=== PATIENT | female | born 1960 | race Caucasian/White ===

== ENCOUNTER 2020-08-01 07:58 | Outpatient (REF) | payer OTHER, SELFPAY ==
[2020-08-01 08:24] LABS: COVID-19 Test Negative (Negative)
== END 2020-08-01 07:59 | disposition home or self-care (01) ==
LOC: HO.LAB 07:58
PROVIDERS: Visit Provider Internal Medicine
DX: Z20.828 Contact with and (suspected) exposure to other viral communicable diseases (principal)
CPT/HCPCS: 87635

== ENCOUNTER 2021-01-16 12:16 | Outpatient (REF) | payer OTHER, SELFPAY ==
[2021-01-16 16:06] LABS: COVID-19 Test Negative (Negative)
== END 2021-01-16 12:17 | disposition home or self-care (01) ==
LOC: HO.EMPCOV 12:16
PROVIDERS: Visit Provider Internal Medicine
DX: Z20.822 Contact with and (suspected) exposure to COVID-19 (principal)
CPT/HCPCS: 36415; 87635; C9803

== ENCOUNTER 2021-01-19 07:36 | Outpatient (REF) | payer OTHER, SELFPAY ==
[2021-01-19 08:13] LABS: COVID-19 Test Negative (Negative)
== END 2021-01-19 07:37 | disposition home or self-care (01) ==
LOC: HO.EMPCOV 07:36
PROVIDERS: Visit Provider Internal Medicine
DX: Z20.822 Contact with and (suspected) exposure to COVID-19 (principal)
CPT/HCPCS: 36415; 87635; C9803

== ENCOUNTER 2022-11-07 10:09 | Outpatient (REF) | payer OTHER, SELFPAY ==
[2022-11-07 12:32] LABS: Alanine Aminotransferase 8 U/L (0-31); Anion Gap 12 (12-20); Aspartate Amino Transferase 13 U/L (5-31); Blood Urea Nitrogen 18 mg/dL (9-16); Calcium 9.5 mg/dL (8.4-10.2); Carbon Dioxide 30 mmol/L (22-29); Chloride 105 mmol/L (96-108); Cholesterol 203 mg/dL; Estimated Glomerular Filt Rate > 60; Free T4 (Free Thyroxine) 1.23 ng/dL (0.71-1.85); Glucose Fasting 87 mg/dL (60-99); HDL Cholesterol 45 mg/dL; LDL Cholesterol Calculated 124 mg/dl; Potassium 3.8 mmol/L (3.3-5.1); Sodium 143 mmol/L (135-145); Thyroid Stimulating Hormone < 0.01 uIU/mL (0.32-4.0); Triglycerides 170 mg/dL; Vitamin D 25-OH Total 14.7 ng/mL (>30)
[2022-11-09 01:03] LABS: Varicella IgG Antibody >4000.00 index
== END 2022-11-07 10:10 | disposition home or self-care (01) ==
LOC: HO.HMGCLDS 10:09
PROVIDERS: PCP Internal Medicine; Visit Provider Internal Medicine
DX: Z00.01 Encounter for general adult medical examination with abnormal findings (principal); E03.9 Hypothyroidism, unspecified; F41.8 Other specified anxiety disorders; I10 Essential (primary) hypertension
CPT/HCPCS: 36415; 80048; 80061; 82306; 84439; 84443; 84450; 84460; 86787

== ENCOUNTER 2023-11-12 11:07 | Outpatient (REF) | payer OTHER, SELFPAY ==
[2023-11-12 11:31] LABS: MANUAL DIFF FLAG NO
[2023-11-12 11:54] LABS: Basophils Absolute Auto 0.1 X10*3/uL (0.0-0.2); Eosinophils Absolute Auto 0.2 X10*3/uL (0.0-0.4); Eosinophils Percent Auto 3.6 % (0-4); Hematocrit 42.8 % (37.0-47.0); Imm Gran Abs Auto 0.03 X10*3/uL (0.00-0.03); Imm Gran Pct Auto 0.4 % (0.0-0.4); Lymphocytes Absolute Auto 1.6 X10*3/uL (1.2-4.9); Lymphocytes Percent Auto 23.8 % (20-40); Mean Corpuscular Hemoglobin 31.3 pg (27.0-33.0); Mean Corpuscular Volume 89.2 fL (80.0-98.0); Monocytes Absolute Auto 0.6 X10*3/uL (0.1-1.2); Neutrophils Absolute Auto 4.1 x10*3/uL (2.0-8.3); Neutrophils Percent Auto 62.2 % (45-73); Platelet Count 176 X10*3/uL (160-400); Red Cell Distribution Width 12.5 % (11.0-16.0); White Blood Count 6.7 X10*3/uL (4.8-10.8)
[2023-11-12 12:40] LABS: Alanine Aminotransferase 11 U/L (0-31); Albumin Level 4.4 g/dL (3.5-5.0); Alkaline Phosphatase 106 U/L (39-117); Anion Gap 14 (12-20); Aspartate Amino Transferase 15 U/L (5-31); Bilirubin Total 0.7 mg/dL (0.0-1.0); Blood Urea Nitrogen 26 mg/dL (9-16); Calcium 9.8 mg/dL (8.4-10.2); Carbon Dioxide 28 mmol/L (22-29); Chloride 106 mmol/L (96-108); Cholesterol 242 mg/dL (<200); Estimated Glomerular Filt Rate > 60; Glucose Fasting 95 mg/dL (60-99); HDL Cholesterol 56 mg/dL (>40); LDL Cholesterol Calculated 156 mg/dL (<100); Sodium 144 mmol/L (135-145); Total Protein 7.8 g/dL (6.5-8.0); Triglycerides 150 mg/dL (<150)
[2023-11-12 12:51] LABS: Free T4 (Free Thyroxine) 1.47 ng/dL (0.71-1.85); Thyroid Stimulating Hormone 0.01 uIU/mL (0.32-4.0); Vitamin D 25-OH Total 17.1 ng/mL (>30)
[2023-11-13 19:49] LABS: Thyroid Peroxidase Antibodies 461 IU/mL (<9)
== END 2023-11-12 11:08 | disposition home or self-care (01) ==
LOC: HO.LAB 11:07
PROVIDERS: PCP Internal Medicine; Visit Provider Internal Medicine
DX: I10 Essential (primary) hypertension (principal); E03.9 Hypothyroidism, unspecified; E55.9 Vitamin D deficiency, unspecified; F41.8 Other specified anxiety disorders
CPT/HCPCS: 36415; 80053; 80061; 82306; 84439; 84443; 85025; 86376

== ENCOUNTER 2023-11-15 07:41 | Outpatient (AMB) | payer OTHER, SELFPAY ==
--- NOTE | 2023-11-15 07:49 | A.OFFPC_ITS ---
Vital Signs 11/15/23 07:58 Height 5 ft Weight 155 lb BMI 30.3 BP 140/84 H Blood Pressure Location Rt brachial Position Sitting Pulse 70 Pulse Source Pulse Oximeter Pulse Oximetry (%) 96 Oxygen Delivery Method Room Air Comment Patient has not yet taken her blood pressure medicine today Intake Visit Reasons: PE Intake Note: Pt is here today for her PE: Last papsmear 02/03/19, colonoscopy 04/14/19, mammogram 11/11/18 Allergies No Known Allergies Allergy (Verified 11/15/23 08:12) Medication List - Last Reconciled 11/15/23 by Radha Domingo MD amlodipine 5 mg PO DAILY atenolol 100 mg PO DAILY escitalopram oxalate 20 mg PO DAILY levothyroxine 200 mcg PO QAM lisinopril-hydrochlorothiazide 20-12.5 mg 1 tab PO DAILY lorazepam 1 mg PO DAILY PRN Tobacco use date assessed: 11/15/23 Dental Screening Dental Screen Date: 11/15/23 HPI PE HPI Details Today for physical exam. She is up-to-date with her screening colonoscopy and cervical cancer screening done by Dr. Cárdenas and Dr. Douglas respectively in 2019 both of which showed normal findings. Her last mammogram was in 2019 which showed normal findings,. She has hypertension currently on amlodipine atenolol and lisinopril-HCTZ. Blood pressure slightly elevated on this visit. She sees Dr. Kyleigh Mascorro for her mixed anxiety / depression and is currently on escitalopram and lorazepam as needed Takes levothyroxine for acquired hypothyroidism [facility] Medical History (Updated 11/15/23 @ 08:41 by Radha Domingo MD) Hyperlipidemia Vitamin D deficiency Essential hypertension Mixed anxiety and depressive disorder Acquired hypothyroidism Surgical History History of tubal ligation History of partial hysterectomy History of section Family History Father HTN (hypertension) Substance use disorder Mother Hypothyroidism Arthritis Depression Mental health disorder Brother No problems noted. Brother No problems noted. Brother No problems noted. Sister No problems noted. Daughter No problems noted. Daughter No problems noted. Social History Housing: House Patient Tobacco Use Status: Never used Tobacco e-Cigarette/Vaping Use: Never Used service: No Current occupational status: unemployed Cognitive needs: No Hearing needs: No Vision needs: Yes Questionnaire PHQ-9 Over the last 2 weeks, how often have you been bothered by any of the following problems? 1. Little interest or pleasure in doing things: nearly every day 2. Feeling down, depressed, or hopeless: nearly every day 3. Trouble falling or staying asleep, or sleeping too much: nearly every day 4. Feeling tired or having little energy: nearly every day 5. Poor appetite or overeating: nearly every day 6. Feeling bad about yourself - or that you are a failure or have let yourself or your family down: nearly every day 7. Trouble concentrating on things, such as reading the newspaper or watching television: nearly every day 8. Moving or speaking so slowly that other people could have noticed. Or the opposite - being so fidgety or restless that you have been moving around a lot more than usual: nearly every day 9. Thoughts that you would be better off or of hurting yourself in some way: not at all Total score: 24 Depression Screening Interpretation: Positive Depression Screening Follow-up: Existing condition, In treatment and Community Mental Health Worker F/U (Currently being followed by Dr. Kyleigh Nino) Depression Screening Done: Yes 62526 - PHQ-9 Billing: Yes Source: Developed by Drs. Kenneth Min, aRchelle Chong, Harrison Baires and colleagues, with an educational juan from [employer]. Thrive Questionnaire Date Thrive assessed: 11/07/22 I am a: Patient What is your living situation today?: I have a steady place to live Within the past 12 months, did the food you bought not last and you didn't have the money to get more?: Sometimes True Within the past 12 months, did you worry whether your food would run out before you got money to buy more?: Sometimes True Do you have trouble paying for medicines?: No Do you have trouble getting transportation to medical appointments?: No Do you have trouble paying your heating and electricity bill?: No Do you have trouble taking care of your child, family member or friend?: No Do you have trouble with day-to-day activities such as bathing, preparing meals, shopping, managing finances, etc.?: Yes Are you currently unemployed and looking for a job?: Yes Please select the resources that you would like help with: Food, Transportation and Utilities THRIVE Score: 2 AUDIT C Alcohol Use Questionnaire (AUDIT-C) 1. How often do you have a drink containing alcohol?: 4 or more times a week 2. How many drinks containing alcohol do you have on a typical day when you are drinking?: 3 or 4 Total Score: 5 GRETA-7 AMB Questionnaire GRETA-7 Date GRETA - 7 assessed: 11/15/23 Feeling nervous, anxious, or on edge: 3 = Nearly every day Not being able to stop or control worryin = Nearly every day Worrying too much about different things: 3 = Nearly every day Trouble relaxin = Nearly every day Being so restless that it is hard to sit still: 3 = Nearly every day Becoming easily annoyed or irritable: 3 = Nearly every day Feeling afraid as if something awful might happen: 3 = Nearly every day Total GRETA-7 score (0-4 normal; 5-9 mild; 10-14 moderate; 15-21 severe): 21 Source: Developed by Drs. Kenneth Min, Rachelle Chong, Harrison Baires and colleagues, with an educational juan from [employer]. GRETA-7 Assessment Billing GRETA-7 Assessment Tool: GRETA-7 Assessment 04237 Review of Systems Const Denies no additional complaints, Denies difficulty sleeping, Denies fatigue, Denies frequent falls and Denies headache(s) Eyes Reports blurry vision (overdue for her eye exam , used to see Dr bhakta) ENT Reports no additional complaints and Denies headache(s) Card Reports no additional complaints, Denies chest pain, Denies palpitations and Denies dyspnea Resp Denies cough and Denies dyspnea GI Denies abdominal pain, Denies melena, Denies hematochezia, Denies change in bowel habits, Denies dyspepsia and Denies heartburn Reports no additional complaints Musc Reports no additional complaints Skin/Breast Denies breast skin changes, Denies breast pain, Denies breast mass and Denies rash Neuro Denies frequent falls and Denies headache(s) Psych Reports as per HPI Endo Denies cold intolerance, Denies fatigue, Denies polydipsia, Denies polyuria and Denies palpitations Jose Roberto/Lymph Denies easy bleeding and Denies easy bruising Aller/Immun Reports no additional complaints Physical exam (Primary Care) Vital Signs: Last Vital Signs Pulse 70 11/15/23 07:58 BP 140/84 H 11/15/23 07:58 Pulse Ox 96 11/15/23 07:58 Oxygen Delivery Method Room Air 11/15/23 07:58 BMI result Body Mass Index 30.3 Tobacco/Smoking Status: Tobacco use Status Tobacco use date assessed 11/15/23 11/15/23 07:50 Patient Tobacco Use Status Never used Tobacco 11/15/23 07:50 e-Cigarette/Vaping Use Never Used 11/15/23 07:50 PHQ-9: PHQ-9 Score PHQ-9: Total score 11/15/23 08:39 Depression Screening Interpretation: Positive Depression Screening Follow-up: Existing condition, In treatment and Community Mental Health Worker F/U (Roc byrnes being followed by Dr. Kyleigh Nino) Thrive Assessment: Date of Thrive Assessment Date Thrive assessed 11/07/22 11/15/23 07:50 Const General: cooperative, comfortable, no acute distress, alert and Physically active Nutritional Appearance: overweight Orientation/consciousness: patient oriented x3 HENMT Head: Yes normocephalic and Yes atraumatic Ears: hearing grossly normal bilaterally, external ears normal, TM's normal bilaterally and EAC's normal General nose exam: Normal external nose present and No nasal discharge present Face and sinus: Yes face symmetric Mouth: Normal oral and palatal mucosa present, oropharynx normal and moist mucous membranes Eyes General: appearance normal, both eyes and all related structures Pupils: Equal, round and reactive pupils present EOM: EOMs intact bilaterally Neck Neck: Yes full ROM, Yes no lymphadenopathy and Yes supple Thyroid: Thyroid normal Chest Chest palpation & inspection: normal inspection of the chest and normal palpation of entire chest wall Breast/axilla inspection: normal inspection of the breasts Breast/axilla palpation: normal palpation of the breasts Resp Effort & Inspection: normal respiratory effort and able to speak in complete sentences Auscultation: clear to auscultation bilaterally Cardio Rate: regular rate Rhythm: regular rhythm Heart sounds: S1 normal heart sound present and S2 normal heart sound present Bruits: no abdominal aortic bruits GI Inspection: Yes normal to inspection Palpation (GI): No Abdominal aortic bruit present, Soft to palpation, nontender, no guarding and no masses Auscultation: normal bowel sounds General: Yes no CVA tenderness Back/Spine/Pelvis Back: no CVA tenderness and No back tenderness Skin General skin exam: no rashes or lesions noted Neuro General: patient oriented x3, gait normal, moves all extremities, Normal light touch and pain sensation, no focal motor deficits and CN's II-XI intact bilaterally Cranial nerves: Yes Equal, round and reactive pupils present Cognition (Neuro): normal cognition Extrem General: Yes normal to inspection, Yes full ROM, Yes no joint enlargement, Yes no clubbing, cyanosis or edema, Yes no calf tenderness and Yes normal gait Psych Appearance: grossly normal and well kempt Mental Status: mental status grossly normal Speech and movement: Normal speech and movement present Affect: Sad affect present Attitude: cooperative Thought process: Normal thought process present Thought content: Normal thought content present Office Procedures Flu Questionnaire Does the patient have a severe egg allergy?: No Does the patient have severe life threatening allergies?: No Does the patient have a fever or illness today?: No Has the patient ever had Guillain-Jelm Syndrome?: No Has the patient ever had any past reaction to a flu shot?: No Immunizations flu vacc [id number] 6mos up(PF) 60 mcg(15 mcgx4)/0.5 mL IM syringe Performing Provider: Radha Domingo MD Performing Location: [facility] Administered by: Trevon Venegas CMA on 11/15/23 08:41 Dose Route Admin Location Dispensed Lot Number Expiration Date NDC Physical Therapy Asst 0.5 mL IM Right Deltoid 0.5 mL [id number] 04/05/24 [id number] [employer] VIS Given Date VIS Provided VIS Publication Date 11/15/23 Single Vaccine 21 Eligibility Eligibility Date Funding Source Not [facility] Eligible 11/15/23 Private Results Reviewed Results Reviewed: RUN: 11/15/23816 PAGE 1 [facility] [address] [place] [id number] Printing Engineer: Rick Fine M.D. Specimen Inquiry Name: Audelia Vega I Age/Sex: 62/F : 1960 Unit#: [id number] Attend Dr: Radha Domingo MD Re11/12/23 Status: DEP REF Location: [facility] Disch: SPEC : [id number] REBECCA: 11/12/23 STATUS: COMP REQ : [id number] RECD: 11/12/[address]: Radha Domingo MD COMP: 11/12/23 ENTERED: 11/12/[address] [facility] [address]: ORDERED: CBC Auto Diff Test Result Flag Reference WBC 6.7 4.8-10.8 X10*3/uL RBC 4.80 4.20-5.50 X1 0*6/uL HGB 15.0 12.0-16.0 g/dl HCT 42.8 37.0-47.0 % MCV 89.2 80.0-98.0 fL MCH 31.3 27.0-33.0 pg MCHC 35.0 31.0-35.0 g/dl RDW 12.5 11.0-16.0 % PLT 176 160-400 X10*3/uL MPV 11.0 9.4-12.3 fL Neut Pct Auto 62.2 45-73 % ImGran Pct Auto 0.4 0.0-0.4 % Lymp Pct Auto 23.8 20-40 % [place] Pct Auto 9.0 2-11 % Eos Pct Auto 3.6 0-4 % Baso Pct Auto 1.0 0-2 % NRBC Pct Auto 0.0 0.0-0.2 /100WBC ANC Neut Abs # 4.1 2.0-8.3 x10*3/uL ImGran Abs Auto 0.03 0.00-0.03 X10*3/uL Lymph Abs Auto 1.6 1.2-4.9 X10*3/uL [place] Abs Auto 0.6 0.1-1.2 X10*3/uL Eos Abs Auto 0.2 0.0-0.4 X10*3/uL Baso Abs Auto 0.1 0.0-0.2 X10*3/uL NRBC Abs Auto 0.000 0.0-0.012 X10*3/uL SPEC : [id number] REBECCA: 11/12/23 STATUS: COMP REQ : [id number] RECD: 11/12/[address] [facility] [address]: Radha Domingo MD COMP: 11/12/23 ENTERED: 11/12/[address]: ORDERED: CMP Fast, Lipid Panel, Vitamin D 25-OH, Free T4, TSH Test Result Flag Reference Sodium 144 135-145 mmol/L Potassium 4.0 3.3-5.1 mmol/L CL 106 96-108 mmol/L CO2 28 22-29 mmol/L Gap 14 12-20 BUN 26 H 9-16 mg/dL Creat 0.88 0.5-1.4 mg/dL EGFR > 60 NOTE: For -[place]ong[place] individuals, multiply the result by 1.210. Chronic Kidney Disease: Estimated GFR < 60 mL/min/1.73m2 Severe Kidney Disease: Estimated GFR < 15 mL/min/1.73m2 FBS 95 60-99 mg/dL CA 9.8 8.4-10.2 mg/dL Total Bili 0.7 0.0-1.0 mg/dL AST (GOT) 15 5-31 U/L ALT (GPT) 11 0-31 U/L Protein, Total 7.8 6.5-8.0 g/dL Alb 4.4 3.5-5.0 g/dL Triglyceride 150 H <150 mg/dL Desirable Triglyceride: less than 150 mg/dL Borderline High Triglyceride 150-199 mg/dL High Triglyceride: 200-499 mg/dL Very High Triglyceride: greater than or equal to 5OO mg/dL Cholesterol 242 H <200 mg/dL Desirable Cholesterol: less than 200 mg/dL Borderline High Cholesterol: 200-239 mg/dL High Cholesterol: greater than 239 mg/dL LDL Calculated 156 H <100 mg/dL Desirable LDL: less than 100 mg/dL Near Optimal/Above Optimal LDL: 110-129 mg/dL Borderline High LDL: 130-159 mg/dL High LDL: 160-189 mg/dL Very High LDL: greater than or equal to 190 mg/dL HDL 56 >40 mg/dL Desirable HDL: greater than 40 mg/dL Note: This HDL assay may give artificially low results in patients with liver disease. Alk Phos 106 39-117 U/L Vit D 25-OH Tot 17.1 L >30 ng/mL Health Based Reference Values* < 20 ng/mL Deficient 20-30 ng/mL Insufficient > 30 ng/mL Sufficient *Morris FRANCIS. N Engl J Med. 2007;357:266-280 Care must be taken in interpreting Vitamin D results from different laboratories and methodologies. Published data demonstrated that results from patients undergoing hemodialysis may show a negative bias when tested with various automated 25-OH vitamin D assays when compared to LC-MS/MS. When testing samples from patients whose predominant form of Vitamin D is Vitamin D2, such as patients receiving Vitamin D2 supplementation, results that are subtherapeutic should be confirmed with another method such as LC-MS/MS. Free T4 1.47 0.71-1.85 ng/dL TSH 3rd Gen. 0.01 L 0.32-4.0 uIU/mL TSH 3rd Generation ([facility]) Assessment and Plan Assessment & Plan (1) Annual visit for general adult medical examination with abnormal findings: Code(s): Z00.01 - Encounter for general adult medical examination with abnormal findings Plan: Recent fasting lab results reviewed with patient. Recommended dental visit every 6 months and regular eye exams, overdue. Take adequate calcium in diet and vitamin-D 3 at 2000 IU per cap once a day, in addition to weight-bearing exercises to help maintain good muscle tone referred for a screening mammogram, up-to-date with her cervical cancer screening but done in 2019 now due, referred to [facility] up-to-date with her screening colonoscopy. Did not get her COVID vaccination, refuses, flu vaccine given today (2) Essential hypertension: Code(s): I10 - Essential (primary) hypertension Plan: Blood pressure elevated on this visit, however patient has not yet taken her medicines this morning. Will continue on current treatment, schedule appointment with nurse navigator in 1-2 weeks to check blood pressure peer (3) Mixed anxiety and depressive disorder: Code(s): F41.8 - Other specified anxiety disorders Plan: Currently followed by Dr. Kyleigh Mascorro (4) Acquired hypothyroidism: Code(s): E03.9 - Hypothyroidism, unspecified Plan: Latest thyroid levels are within normal limits, continue with current dose of levothyroxine (5) Vitamin D deficiency: Code(s): E55.9 - Vitamin D deficiency, unspecified Plan: Placed on cholecalciferol 68100 units per capsule to take once a week for the next 3 months. Once finished taking the prescription, to continue taking [id number] vitamin-D 3 at 2000 units daily. Repeat another vitamin-D level in 3 month (6) Encounter for routine pelvic examination: Code(s): Z01.419 - Encounter for gynecological examination (general) (routine) without abnormal findings Qualifiers: Gynecological examination findings: abnormal findings ABSENT Qualified Code(s): Z01.419 - Encounter for gynecological examination (general) (routine) without abnormal findings Plan: Referred to [facility] for her routine Pap and pelvic exam (7) Hyperlipidemia: Code(s): E78.5 - Hyperlipidemia, unspecified Qualifiers: Hyperlipidemia type: pure hypercholesterolemia Qualified Code(s): E78.00 - Pure hypercholesterolemia, unspecified Plan: Reinforced following a low-cholesterol diet and getting regular exercise., advised to avoid alcohol intake recheck again another fasting lipid panel in 3 (8) Alcohol use disorder, mild, abuse: Code(s): F10.10 - Alcohol abuse, uncomplicated Plan: Patient strongly advised to quit alcohol intake declines refer for AA discusse complications of alcohol abuse. Orders: Orders MM tomosynthesis screening BI Today Z12.31 - Encounter for screening mammogram for malignant neoplasm of breast Lipid Panel Today E55.9 - Vitamin D deficiency, unspecified, E78.5 - Hyperlipidemia, unspecified Influenza [id number] Immunization Today Z23 - Encounter for immunization Vitamin D 25-OH Total Today E55.9 - Vitamin D deficiency, unspecified Referrals [facility] Referral Z01.419 - Encounter for gynecological examination (general) (r outine) without abnormal findings Medications: New cholecalciferol (vitamin D3) 1,250 mcg PO QWEEK 3 months 13 caps 0RF Coding Level of Care Code Est Pt Prev Care 40-64y(32422) Diagnoses Annual visit for general adult medical examination with abnormal findings Z00.01 Essential hypertension I10 Mixed anxiety and depressive disorder F41.8 Acquired hypothyroidism E03.9 Vitamin D deficiency E55.9 Encounter for gynecological examination without abnormal finding Z01.419 Gynecological examination findings: abnormal findings ABSENT Pure hypercholesterolemia E78.00 Hyperlipidemia type: pure hypercholesterolemia Alcohol use disorder, mild, abuse F10.10 Additional Codes GRETA-7 Assessment Billing - GRETA-7 Assessment Tool: GRETA-7 Assessment 84255 ([id number])
[2023-11-15 07:58] VITALS: BP 140/84; PULSE 70; O2SAT 96; BMI 30.3
== END 2023-11-15 10:00 | disposition home or self-care (01) ==
PROVIDERS: PCP Internal Medicine; Visit Provider Internal Medicine
DX: Z00.00 Encounter for general adult medical examination without abnormal findings (principal); E03.9 Hypothyroidism, unspecified; F41.8 Other specified anxiety disorders; Z23 Encounter for immunization; I10 Essential (primary) hypertension; E55.9 Vitamin D deficiency, unspecified; E78.00 Pure hypercholesterolemia, unspecified; F10.10 Alcohol abuse, uncomplicated
CPT/HCPCS: 90471; 90686; 99396

== ENCOUNTER 2023-12-14 12:25 | Emergency (ER) | payer OTHER, SELFPAY ==
--- NOTE | ~2023-12-14 | CT_ITS ---
EXAMINATION: CT ABDOMEN AND PELVIS WITH CONTRAST CLINICAL INFORMATION: Abdominal pain. COMPARISON: 03/27/2016 TECHNIQUE: Multidetector volumetric images were obtained from the superior aspect of the liver through the pubic symphysis following administration 85 mL of Omnipaque 350 intravenous contrast. Sagittal and coronal reformatted images were obtained on the technologist's workstation. Oral contrast: No This CT examination was performed using dose optimization techniques as appropriate, variously including the following: *Automated exposure control *Adjustment of mA and/or kV according to patient size (this includes techniques or standardized protocols for targeted exams where dose is matched to indication/reason for exam; i.e. extremities or head) *Use of iterative reconstruction technique DLP: 583. mGy-cm FINDINGS: LUNG BASES: There is a calcified granuloma in the right lower lobe adjacent to the right hemidiaphragm. No suspicious pulmonary nodules. LIVER, GALLBLADDER, AND BILIARY TREE: The liver is normal in size, shape, and attenuation. No focal hepatic lesion or biliary ductal dilatation is present. The gallbladder is unremarkable with no evidence of radiopaque gallstones, gallbladder wall thickening, or obvious pericholecystic inflammatory changes. PANCREAS: Unremarkable. SPLEEN: Unremarkable. ADRENAL GLANDS: Unremarkable. KIDNEYS AND URETERS: The kidneys are normal in size, shape, and attenuation. No hydronephrosis or hydroureter. There is a 4 mm nonobstructing left renal calculus with attenuation value of 950 Hounsfield units situated 10 cm from the left posterior mid axillary line. Additional 2 mm calculi are present in the left upper and left lower renal poles. No appreciable right renal calculi.. No perinephric stranding. BLADDER: Unremarkable. GASTROINTESTINAL TRACT: Small to moderate-sized hiatal hernia. Stomach, small bowel, and colon are normal in caliber. Normal appendix. No appreciable bowel wall thickening or surrounding fat stranding. No intraperitoneal free air or free fluid. ABDOMINAL WALL: Chronic postoperative changes anterior abdominal wall in the pelvis from prior low transverse incision. No hernias. LYMPH NODES: Normal. VASCULAR: Unremarkable. PELVIC VISCERA: The uterus and adnexa are unremarkable. OSSEOUS STRUCTURES: There is mild to moderate multilevel degenerative disc disease in the lumbar spine, most notably at L4-L5 and L5-S1. Marked arthropathy is present at L4-L5 with grade 1 anterolisthesis of L4 on L5. Posterior disc osteophyte complexes at multiple levels produce central canal narrowing, most notably at L2-L3. CT/CT abdomen pelvis w IV con IMPRESSION: 1. No acute intra-abdominal or intrapelvic abnormalities. 2. Nonobstructing left renal calculi. 3. Small to moderate-sized hiatal hernia. 4. Multilevel degenerative spondylosis in the lumbar spine. Fleischner guidelines were followed.
[2023-12-14 12:33] VITALS: BP 140/38; PULSE 66; O2SAT 98
[2023-12-14 12:37] VITALS: BP 162/90; PULSE 85; RESP 20; TEMP 35.5; O2SAT 99; BMI 30.3
--- NOTE | 2023-12-14 12:39 | ECG_ITS ---
Test Reason : ABD PAIN Blood Pressure : / mmHG Vent. Rate : 079 BPM Atrial Rate : 079 BPM P-R Int : 156 ms QRS Dur : 108 ms QT Int : 430 ms P-R-T Axes : 042 -14 -10 degrees QTc Int : 493 ms Normal sinus rhythm Minimal voltage criteria for LVH, may be normal variant ( Lyle product ) Nonspecific ST and T wave abnormality Prolonged QT Abnormal ECG When compared with ECG of 24-NOV-2019 10:49, Non-specific change in ST segment in Lateral leads Inverted T waves have replaced nonspecific T wave abnormality in Inferior leads Nonspecific T wave abnormality now evident in Anterolateral leads QT has lengthened Referred By: Shakira Gómez Electronically Signed By:LOLLY PALMER MD
--- NOTE | 2023-12-14 12:39 | ED.GENADULT ---
HPI - General Adult General Chief complaint: Nausea/Vomiting/Diarrhea Stated complaint: NAUSEA,VOMITING THIS AM PER EMS Time Seen by Provider: 12/14/23 16:01 Source: patient and family (Daughter) Mode of arrival: ambulatory Limitations: no limitations History of Present Illness HPI narrative: 62-year-old female with a history of diabetes mellitus, hypertension, hypothyroidism who presents emergency department for evaluation of nausea, vomiting, diarrhea and abdominal pain since 06:30 hours. She states she has had greater than 10 episodes of emesis throughout the day and now she is vomiting bile. She also states she has been having diarrhea all day. She has not noticed any blood in the vomit or emesis. She states she had subjective fever and chills. She denied rhinorrhea, sore throat, cough, chest pain shortness of breath. She has had frequency and dysuria. Patient states that she is having severe abdominal pain. She states the pain is sharp pain is located diffusely throughout her body. The pain is greater than 10/10. Related Data Home Medications Medication Instructions Recorded Confirmed escitalopram oxalate 20 mg tablet 20 mg PO DAILY 10/03/22 11/07/22 lorazepam 1 mg tablet 1 mg PO DAILY PRN 10/03/22 11/07/22 Previous Rx's Medication Instructions Recorded amlodipine 5 mg tablet 5 mg PO DAILY #90 tabs 11/03/23 lisinopril 20 1 tab PO DAILY #90 tabs 11/03/23 mg-hydrochlorothiazide 12.5 mg tablet atenolol 100 mg tablet 100 mg PO DAILY #90 caps 11/06/23 levothyroxine 200 mcg tablet 200 mcg PO QAM #90 caps 11/06/23 cholecalciferol (vitamin D3) 1,250 1,250 mcg PO QWEEK 3 months #13 11/15/23 mcg (50,000 unit) capsule caps morphine 15 mg immediate release 15 mg PO Q6H PRN pain #10 tabs 12/14/23 tablet ondansetron 4 mg disintegrating 4 mg PO Q6-8H PRN nausea and 12/14/23 tablet vomiting #14 tabs Allergies Allergy/AdvReac Type Severity Reaction Status Date / Time No Known Allergies Allergy Verified 11/15/23 08:12 Review of Systems Review of Systems: Yes all other systems are reviewed and are negative PMFSH Past Medical History [facility] Narrative: Social history: Patient denies tobacco use. She occasionally drinks alcohol. She has had no alcohol to drink recently. She does smoke marijuana twice a day. Medical History (Updated 12/15/23 @ 00:00 by Rach Fry) Hyperlipidemia Vitamin D deficiency Essential hypertension Mixed anxiety and depressive disorder Acquired hypothyroidism Surgical History History of tubal ligation History of partial hysterectomy History of section Family History Family History Father HTN (hypertension) Substance use disorder Mother Hypothyroidism Arthritis Depression Mental health disorder Brother No problems noted. Brother No problems noted. Brother No problems noted. Sister No problems noted. Daughter No problems noted. Daughter No problems noted. Social History Social History Housing: House Patient Tobacco Use Status: Never used Tobacco Smoked in Last 30 Days: No e-Cigarette/Vaping Use: Never Used Use of substances other than those prescribed or required for medical reasons: Yes Substance Use Type: Marijuana Substance Use Frequency: Daily Advance Directives: No Advance Directives Information Provided: No Patient : No service: No Current occupational status: unemployed Cognitive needs: No Hearing needs: No Vision needs: Yes Physical Exam ED Vital Signs: Vital Signs - 24 hr 12/14/23 12:37 12/14/23 14:41 12/14/23 16:00 Temperature 96 F L 98 F 98.9 F Pulse Rate 85 82 92 Respiratory Rate 20 18 16 Blood Pressure 162/90 H 188/104 H 166/87 H Pulse Oximetry 99 100 99 Oxygen Delivery Method Room Air Room Air Room Air 12/14/23 18:00 12/14/23 19:23 Temperature 98.3 F 98.1 F Pulse Rate 87 89 Respiratory Rate 16 14 Blood Pressure 169/94 H 118/62 Pulse Oximetry 97 97 Oxygen Delivery Method Room Air Room Air BMI result Body Mass Index 30.3 Vital signs revealed elevated blood pressure of 162/90 otherwise unremarkable. Exam: General: Awake, alert in no distress Head: Normocephalic, atraumatic EENT: PERRL, Lids normal, sclera normal, conjunctiva normal, nose normal , ears normal, throat without erythema or exudates Neck: Supple, no adenopathy Lung: breath sounds symmetric, no wheezing, rales or rhonchi Chest: symmetric movement, nontender Heart: regular rate and rhythm, normal S1, S2 no murmurs or rubs Abdomen: soft, mild to moderate diffuse tenderness, no rebound, no voluntary or involuntary guarding, nondistended, normal bowel sounds Back: no vertebral tenderness, no CVAT Extremities: no deformities, moves all extremities symmetrically Neuro: Awake, alert, oriented, normal speech, cranial nerves intact, moves all extremities symmetrically Psych: Pleasant, cooperative Course Course Course Narrative: This is a rapid medical exam: Additional HPI, ROS, PE not included below will be deferred to primary provider. Patient is a 62-year-old female presenting to the ED with complaint of nausea, vomiting, and diarrhea since this morning. Sudden onset symptoms. Vitals stable in triage. Generalized abdominal pain. Feels sweaty, lightheaded. Plan: EKG, labs, viral swabs, UA 14:43 Patient reassessed, BP elevated to 188/104, states did not take BP medication today due to vomiting, medicated with IM benadryl d/t QT prolongation. Charge aware. Medications Administered Discontinued Medications Generic Name Dose Route Start Last Admin Trade Name Freq PRN Reason Stop Dose Admin Diphenhydramine HCl 25 mg 12/14/23 14:39 12/14/23 15:37 Diphenhydramine Hcl 50 Mg/Ml Vial IM 12/14/23 14:40 25 mg ONCE ONE Administration Diphenhydramine HCl 25 mg 12/14/23 16:35 12/14/23 16:56 Diphenhydramine Hcl 50 Mg/Ml Vial IVPUSH 12/14/23 16:36 25 mg ONCE ONE Administration Sodium Chloride 1,000 mls @ 999 mls/hr 12/14/23 16:32 12/14/23 17:58 Ns IV 12/14/23 17:32 Infused .Q1H1M STA Infusion Iohexol 85 ml 12/14/23 16:19 12/14/23 16:19 Iohexol 350 Mg/Ml 100 Ml Infus..Btl IV 12/14/23 16:20 85 ml ONCE ONE Administration Ketorolac Tromethamine 30 mg 12/14/23 16:32 12/14/23 16:56 Ketorolac Tromethamine 30 Mg/Ml Vial IVPUSH 12/14/23 16:33 30 mg ONCE ONE Administration Metoclopramide HCl 10 mg 12/14/23 16:35 12/14/23 16:57 Metoclopramide Hcl 10 Mg/2 Ml Vial IVPUSH 12/14/23 16:36 10 mg ONCE STA Administration Morphine Sulfate 4 mg 12/14/23 17:52 12/14/23 18:15 Morphine Sulfate 4 Mg/Ml Cartridge IVPUSH 12/14/23 17:53 4 mg ONCE STA Administration Protocol Medical Decision Making Medical Decision Making MDM Narrative: 62-year-old female with a history of diabetes mellitus, hypertension, hypothyroidism who presents emergency department for evaluation of nausea, multiple episodes of vomiting and diarrhea-with no blood in either the diarrhea or emesis and diffuse abdominal pain with symptoms beginning at 06:30 hours. Patient describes abdominal pain is a severe, sharp pain which is constant is greater than 10/10. Vital signs did reveal an elevated blood pressure. Exam did reveal mild to moderate diffuse abdominal tenderness with no rebound or voluntary guarding. Differential diagnosis: ?Includes but is not limited to appendicitis, pancreatitis, colitis, gastroenteritis, viral syndrome, dehydration, anemia, electrolyte abnormalities Following evaluation was ordered: CBC, CMP, lipase, troponin, EKG, COVID-19, influenza, RSV, CT scan of the abdomen pelvis with IV contrast Course: My interpretation patient's laboratory evaluation is as follows: WBC elevated 14,000, BUN elevated 28 with a normal creatinine of 0.93, glucose elevated 191. Elevated anion gap of 21. Urinalysis revealed a high specific gravity, positive for glucose positive for blood negative for nitrates and leukocyte esterase. Microscopic revealed 3-5 WBCs 0-5 RBCs, 0-2 squamous cells no bacteria-no evidence for urinary tract infection but evidence for dehydration. Troponin was below detectable limits. CT scan of the abdomen pelvis with IV contrast did not reveal any clear etiology for her pain or other symptoms. Twelve EKG was unremarkable. Patient initially received normal saline IV x1 L, Reglan 10 mg IV and Benadryl 25 mg IV and Benadryl 25 mg IM with only minimal relief of her pain but did resolve her nausea. She then received morphine 4 mg IV with significant relief of her pain and repeat abdominal exam revealed no abdominal tenderness. Patient's symptoms are most likely secondary to a viral syndrome causing her nausea vomiting abdominal pain I did discuss this with her. She was advised to take Tylenol for pain and for pain not relieved by Tylenol she was prescribed morphine 15 mg every 6 hours as needed for pain. She was also given prescription for Zofran 4 mg ODT every 6-8 hours. She was given printed and verbal instructions and discharged home. Admission/Observation Consideration of admission/observation: Escalation of care including admission/observation considered Lab Data MDM Lab Attestation statement: I reviewed the patient's lab results. 12/14/23 13:00 12/14/23 13:00 Labs: Lab Results 12/14/23 12/14/23 Range/Units 13:00 19:51 WBC 14.0 H (4.8-10.8) X10*3/uL RBC 5.34 (4.20-5.50) X10*6/uL Hgb 16.4 H (12.0-16.0) g/dl Hct 45.9 (37.0-47.0) % MCV 86.0 (80.0-98.0) fL MCH 30.7 (27.0-33.0) pg MCHC 35.7 H (31.0-35.0) g/dl RDW 12.0 (11.0-16.0) % Plt Count 208 (160-400) X10*3/uL MPV 10.6 (9.4-12.3) fL Immature Gran % (Auto) 0.6 H (0.0-0.4) % Neut % (Auto) 88.7 H (45-73) % Lymph % (Auto) 4.1 L (20-40) % [place] % (Auto) 4.6 (2-11) % Eos % (Auto) 1.6 (0-4) % Baso % (Auto) 0.4 (0-2) % Lymph # (Auto) 0.6 L (1.2-4.9) X10*3/uL [place] # (Auto) 0.7 (0.1-1.2) X10*3/uL Eos # (Auto) 0.2 (0.0-0.4) X10*3/uL Baso # (Auto) 0.1 (0.0-0.2) X10*3/uL Abs Immat Gran (auto) 0.08 H (0.00-0.03) X10*3/uL Absolute Neuts (auto) 12.4 H (2.0-8.3) x10*3/uL Absolute Nucleated RBC 0.000 (0.0-0.012) X10*3/uL Nucleated RBC % (auto) 0.0 (0.0-0.2) /100WBC Sodium 141 (135-145) mmol/L Potassium 3.3 (3.3-5.1) mmol/L Chloride 106 (96-108) mmol/L Carbon Dioxide 17 L (22-29) mmol/L Anion Gap 21 H (12-20) BUN 28 H (9-16) mg/dL Creatinine 0.93 (0.5-1.4) mg/dL Estim Creat Clear Calc 55.5 Estimated GFR > 60 Random Glucose 191 H (60-115) mg/dL Calcium 10.5 H D (8.4-10.2) mg/dL Magnesium 1.6 (1.6-2.6) mg/dL Total Bilirubin 1.0 (0.0-1.0) mg/dL AST 24 (5-31) U/L ALT 23 (0-31) U/L Alkaline Phosphatase 112 (39-117) U/L Troponin I High Sens < 2.7 (<3.5-17.0) ng/L Total Protein 8.4 H (6.5-8.0) g/dL Albumin 4.6 (3.5-5.0) g/dL Urine Color Yellow Urine Appearance Clear Urine pH 6.5 (5.0-9.0) Ur Specific [place] >= 1.030 H (1.005-1.025) Urine Protein Trace (Neg-Trace) mg/dL Urine Glucose (UA) 100 H (Negative) mg/dL Urine Ketones Negative (Negative) mg/dL Urine Blood Small (1+) H (Negative) Urine Nitrite Negative (Negative) Ur Leukocyte Esterase Negative (Negative) Urine RBC 3-5 H (0-2) /HPF Urine WBC 0-5 (0-5) /HPF Ur Squamous Epith Cells 0-2 (0-2) /HPF Urine Bacteria None Seen (None Seen) Hyaline Casts 0-2 (0-2) /LPF Influenza Type A (PCR) NEGATIVE (Negative) Influenza Type B (PCR) NEGATIVE (Negative) RSV RNA Qual (PCR) NEGATIVE (Negative) SARS-CoV-2 RNA (RT-PCR) NEGATIVE (Negative) Independent Interpretation I performed an independent interpretation of an: EKG Interpretation: My interpretation patient's 12 EKG done at 12:53 hours is as follows: Normal sinus rhythm rate of 79, normal NC interval, prolonged QRS duration of 108 milliseconds, prolonged QTC of 493 milliseconds, no ST segment elevation, no ST segment depression, no significant T-wave abnormalities, no PACs, no PVCs Radiology Impression Discussion of test interpretation with radiology: I have reviewed the radiologist's reading. Radiologist Impression: CT abdomen pelvis w IV con IMPRESSION: 1. No acute intra-abdominal or intrapelvic abnormalities. 2. Nonobstructing left renal calculi. 3. Small to moderate-sized hiatal hernia. 4. Multilevel degenerative spondylosis in the lumbar spine. Fleischner guidelines were followed. Dictated By: n Independent Historian Clinical information obtained from an independent historian. History obtained from or confirmed by: Other (Family member) Prescription Management I considered prescription management with: Pain Medication and Other (Antiemetics) Chronic Conditions Patient?s care impacted by: Diabetes and Hypertension Discharge Plan Discharge Clinical Impression: Viral syndrome, Nausea & vomiting, Diarrhea Patient Disposition: Home, Self-Care Instructions: Viral Syndrome (ED) Additional Instructions: Your blood work did reveal an elevated white blood cell count which goes along with an infection. Your blood chemistries were otherwise unremarkable Your COVID-19, influenza and RSV were negative. Your symptoms are caused by a viral infection.Take ibuprofen 200 mg pills, 3 pills every 6 hours as needed for pain. Take Tylenol (acetaminophen) 2 pills every 6 hours as needed for pain. For pain not relieved by Tylenol take morphine 15 mg pills, 1 pill every 4 hours as needed for pain. This medication will make you sleepy, do not drive or work while taking this medication. Morphine is a narcotic medication and can be addicting. If you are concerned about addiction you can ask the pharmacist for less pills or do not get this prescription filled. Take Zofran ODT 4 mg pills, 1 pill dissolved in your mouth every 8 hours as needed for nausea and vomiting. For the next 24 hours, stay on a LENNY diet (bananas, rice, applesauce, tea and toast). Follow-up with your doctor in 2 days. Please return to the emergency department if your symptoms get worse or if you develop any symptoms that are concerning to you. Prescriptions: New morphine 15 mg tablet 15 mg PO Q6H PRN (Reason: pain) Qty: 10 0RF Rx Instructions: The patient may ask for partial fill; Partial Fill upon patient request. ondansetron 4 mg tablet,disintegrating 4 mg PO Q6-8H PRN (Reason: nausea and vomiting) Qty: 14 0RF No Action amlodipine 5 mg tablet 5 mg PO DAILY Qty: 90 1RF lisinopril-hydrochlorothiazide 20-12.5 mg tablet 1 tab PO DAILY Qty: 90 1RF atenolol 100 mg tablet 100 mg PO DAILY Qty: 90 1RF levothyroxine 200 mcg tablet 200 mcg PO QAM Qty: 90 1RF lorazepam 1 mg tablet 1 mg PO DAILY PRN escitalopram oxalate 20 mg tablet 20 mg PO DAILY cholecalciferol (vitamin D3) 1,250 mcg (50,000 unit) capsule 1,250 mcg PO QWEEK 90 Days Qty: 13 0RF Interventions: ED Discharge Assessment Last Done: 12/14/23 20:42 Discharge Date/Time: 12/14/23 20:44
[2023-12-14 13:06] LABS: MANUAL DIFF FLAG NO
[2023-12-14 13:07] LABS: Basophils Absolute Auto 0.1 X10*3/uL (0.0-0.2); Basophils Percent Auto 0.4 % (0-2); Eosinophils Absolute Auto 0.2 X10*3/uL (0.0-0.4); Eosinophils Percent Auto 1.6 % (0-4); Hematocrit 45.9 % (37.0-47.0); Hemoglobin 16.4 g/dl (12.0-16.0); Imm Gran Abs Auto 0.08 X10*3/uL (0.00-0.03); Imm Gran Pct Auto 0.6 % (0.0-0.4); Lymphocytes Absolute Auto 0.6 X10*3/uL (1.2-4.9); Lymphocytes Percent Auto 4.1 % (20-40); Mean Corpuscular HGB Conc 35.7 g/dl (31.0-35.0); Mean Corpuscular Hemoglobin 30.7 pg (27.0-33.0); Mean Platelet Volume 10.6 fL (9.4-12.3); Monocytes Absolute Auto 0.7 X10*3/uL (0.1-1.2); Monocytes Percent Auto 4.6 % (2-11); Neutrophils Absolute Auto 12.4 x10*3/uL (2.0-8.3); Neutrophils Percent Auto 88.7 % (45-73); Platelet Count 208 X10*3/uL (160-400); Red Blood Count 5.34 X10*6/uL (4.20-5.50)
[2023-12-14 13:33] LABS: Alanine Aminotransferase 23 U/L (0-31); Albumin Level 4.6 g/dL (3.5-5.0); Alkaline Phosphatase 112 U/L (39-117); Anion Gap 21 (12-20); Aspartate Amino Transferase 24 U/L (5-31); Blood Urea Nitrogen 28 mg/dL (9-16); Calcium 10.5 mg/dL (8.4-10.2); Carbon Dioxide 17 mmol/L (22-29); Chloride 106 mmol/L (96-108); Creatinine Clr Calc Pharmacy 55.5; Estimated Glomerular Filt Rate > 60; Glucose Random 191 mg/dL (60-115); Magnesium 1.6 mg/dL (1.6-2.6); Potassium 3.3 mmol/L (3.3-5.1); Sodium 141 mmol/L (135-145); Total Protein 8.4 g/dL (6.5-8.0)
[2023-12-14 13:39] LABS: Troponin-I High Sensitivity < 2.7 ng/L (<3.5-17.0)
[2023-12-14 13:49] LABS: Influenza A PCR NEGATIVE (Negative); Influenza B PCR NEGATIVE (Negative); Resp Syncy Virus RNA Qual PCR NEGATIVE (Negative); SARS COV2 PCR INHOUSE NEGATIVE (Negative)
[2023-12-14 14:41] VITALS: BP 188/104; PULSE 82; RESP 18; TEMP 36.6; O2SAT 100
[2023-12-14] MEDS: diphenhydrAMINE HCL 50 MG/ML VIAL 25 MG IM (15:37)
--- NOTE | 2023-12-14 15:48 | PC.NURSE ---
patient a&ox3, pt c/o 07/16 abd pain and nausea, pt medicated per order, ekg performed in triage, labs drawn in triage, iv inserted- pt awaiting ct scan, call saavedra within reach, will continue to monitor
[2023-12-14 16:00] VITALS: BP 166/87; PULSE 92; RESP 16; TEMP 37.2; O2SAT 99
[2023-12-14] MEDS: iohexoL 350 MG/ML 100 ML INFUS..BTL 85 ML IV (16:19)
[2023-12-14] MEDS: diphenhydrAMINE HCL 50 MG/ML VIAL 25 MG IVPUSH (16:56)
[2023-12-14] MEDS: Ketorolac Tromethamine 30 MG/ML VIAL IVPUSH (16:56)
[2023-12-14] MEDS: Metoclopramide HCl 10 MG/2 ML VIAL IVPUSH (16:57)
[2023-12-14] MEDS: 0.9 % Sodium Chloride 1,000 ML 999 ML IV (16:57)
--- NOTE | 2023-12-14 17:27 | PC.NURSE ---
patient a&ox3, vss, ivf started per order, pt medicated for pain and nausea, family at bedside, c/o 07/16 abd pain- pt awaiting ct scan results, call saavedra within reach, will continue to monitor
[2023-12-14 18:00] VITALS: BP 169/94; PULSE 87; RESP 16; TEMP 36.8; O2SAT 97
[2023-12-14] MEDS: Morphine Sulfate 4 MG/ML CARTRIDGE IVPUSH (18:15)
--- NOTE | 2023-12-14 18:19 | PC.NURSE ---
patient medicated for 7/10 abd pain
[2023-12-14 19:23] VITALS: BP 118/62; PULSE 89; RESP 14; TEMP 36.7; O2SAT 97
[2023-12-14 20:03] LABS: Appearance Urine Clear; Color Urine Yellow; Glucose Urine UA 100 mg/dL (Negative); Leukocyte Esterase Urine Negative (Negative); Nitrite Urine Negative (Negative); PH 6.5 (5.0-9.0); Specific Gravity - Urine >= 1.030 (1.005-1.025); UMIC TRIGGER UACC YES; Urine Blood Small (1+) (Negative); Urine Ketones Negative (Negative); Urine Protein Trace mg/dL (Neg-Trace)
[2023-12-14 20:14] LABS: Bacteria Urine None Seen (None Seen); Hyaline Casts Urine 0-2 /LPF (0-2); Squamous Epithelial Cell Urine 0-2 /HPF (0-2); WBC Urine 0-5 /HPF (0-5)
== END 2023-12-14 20:44 | disposition home or self-care (01) ==
PROVIDERS: Registered Nurse Emergency; Emergency Provider Emergency Medicine Emergency Medical Services; PCP Internal Medicine
DX: B34.9 Viral infection, unspecified (principal); R11.2 Nausea with vomiting, unspecified; R19.7 Diarrhea, unspecified; R10.9 Unspecified abdominal pain; I10 Essential (primary) hypertension; E03.9 Hypothyroidism, unspecified; E11.9 Type 2 diabetes mellitus without complications; Z11.52 Encounter for screening for COVID-19; Z20.828 Contact with and (suspected) exposure to other viral communicable diseases
CPT/HCPCS: 0241U; 74177; 80053; 81001; 81003; 83735; 84484; 85025; 93005; 96361; 96372; 96374; 96375; 99285; J1200; J1885; J2270; J2765; Q9967

== ENCOUNTER → 2023-12-14 12:39 | Outpatient (BNV) | payer OTHER, SELFPAY | PROVIDERS: Emergency Provider Emergency Medicine Emergency Medical Services; PCP Internal Medicine; Visit Provider Internal Medicine Cardiovascular Disease | DX: R10.9 Unspecified abdominal pain (principal) | CPT/HCPCS: 93010 ==

== ENCOUNTER 2024-01-02 14:38 | Outpatient (REF) | payer OTHER, SELFPAY ==
--- NOTE | ~2024-01-02 | MM_ITS ---
EXAMINATION: MM SCREENING DIGITAL BREAST TOMOSYNTHESIS, BILATERAL CLINICAL INFORMATION: Screening. Asymptomatic. COMPARISON: Mammography: This study is compared with prior exams dating back to 2016. TECHNIQUE: Digital breast tomosynthesis is performed in both the craniocaudal and mediolateral oblique views along with computer-aided detection (CAD). Synthesized 2D images are generated from the tomosynthesis. FINDINGS: There are scattered areas of fibroglandular density (ACR BI-RADS breast composition Category b). There are no significant masses, abnormal calcifications, or other abnormalities. MM/MM tomosynthesis screening BI IMPRESSION: No mammographic evidence of malignancy. ASSESSMENT: BI-RADS BI-RADS 1 - Negative RECOMMENDATION: Routine annual mammography screening. 1 year F/U This examination should not preclude the clinical evaluation of a suspicious palpable abnormality. This patient's information was entered into a reminder system with a target due date for their next mammogram.
== END 2024-01-02 14:39 | disposition home or self-care (01) ==
LOC: HO.MAMMO 14:38
PROVIDERS: PCP Internal Medicine; Visit Provider Internal Medicine
DX: Z12.31 Encounter for screening mammogram for malignant neoplasm of breast (principal)
CPT/HCPCS: 77063; 77067

== ENCOUNTER → 2024-01-02 14:45 | Outpatient (BNV) | payer OTHER, SELFPAY | PROVIDERS: PCP Internal Medicine; Visit Provider Radiology Diagnostic Radiology | DX: Z12.31 Encounter for screening mammogram for malignant neoplasm of breast (principal) | CPT/HCPCS: 77063; 77067 ==

== ENCOUNTER 2024-01-23 12:46 | Outpatient (AMB) | payer OTHER, SELFPAY ==
--- NOTE | 2024-01-23 13:04 | MHC.OFFVIS ---
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 No complaints. Last Pap/HPV was negative in 01/23 Last Mammogram was BI-RADS 1 in 12/28 Last Colonoscopy was in 2018, the recommendation was to repeat in 10 years [facility] Medical History Hyperlipidemia Vitamin D deficiency Essential hypertension Mixed anxiety and depressive disorder Acquired hypothyroidism Surgical History History of tubal ligation History of partial hysterectomy History of section Family History Father HTN (hypertension) Substance use disorder Mother Hypothyroidism Arthritis Depression Mental health disorder Brother No problems noted. Brother No problems noted. Brother No problems noted. Sister No problems noted. Daughter No problems noted. Daughter No problems noted. Social History Housing: House Patient Tobacco Use Status: Never used Tobacco e-Cigarette/Vaping Use: Never Used Substance Use Type: Marijuana service: No Current occupational status: unemployed Cognitive needs: No Hearing needs: No Vision needs: Yes Female Reproductive History Menstrual Menopause type: surgical Total pregnancies: 2 Full term: 2 Number of Living Children: 2 Date of last pap smear: 01/23/19 Date of Mammogram: 01/02/24 Review of Systems Const All systems reviewed & are unremarkable except as noted in HPI and below Card Reports as per HPI and Reports no additional complaints Resp Reports as per HPI and Reports no additional complaints GI Reports as per HPI and Reports no additional complaints Reports as per HPI Physical Exam Vital Signs: Last Vital Signs BP 120/78 01/23/24 13:11 BMI result Body Mass Index 30.9 Const General: cooperative, healthy appearing and comfortable General: Yes bladder normal to palpation External Female Exam: No lesion Speculum Exam - Vagina: normal appearance of the vagina, normal vaginal discharge and not erythematous Speculum Exam - Cervix: normal appearance of the cervix Bimanual exam- vagina & uterus: bladder normal to palpation and uterus absent Bimanual Exam- Adnexa, other: Other (No masses detected) Assessment & Plan Assessment & Plan (1) Well woman exam: Code(s): Z01.419 - Encounter for gynecological examination (general) (routine) without abnormal findings Category: Medical Plan: Cotesting done. Instructions given to patient to schedule next screening Mammogram in 12/29. Counseled the patient about the recommended dietary allowance of 1000 mg of Calcium & 600 IU of vitamin D. The patient was instructed to perform monthly self-breast exams and to schedule an annual exam in a year; All questions answered and the patient verbalized understanding. Instructed the patient to schedule annual exam in a year
[2024-01-23 13:11] VITALS: BP 120/78; BMI 30.9
== END 2024-01-23 12:53 | disposition home or self-care (01) ==
PROVIDERS: PCP Internal Medicine; Visit Provider Obstetrics & Gynecology
DX: Z01.419 Encounter for gynecological examination (general) (routine) without abnormal findings (principal)
CPT/HCPCS: 99386

== ENCOUNTER 2024-01-23 12:46 | Outpatient (REF) | payer OTHER, SELFPAY ==
[2024-01-30 02:39] LABS: HPV mRNA E6/E7 rflx Not Detected (Not Detected)
== END 2024-01-23 12:47 | disposition home or self-care (01) ==
LOC: HO.LNP 12:46
PROVIDERS: PCP Internal Medicine; Visit Provider Obstetrics & Gynecology
DX: Z01.419 Encounter for gynecological examination (general) (routine) without abnormal findings (principal)
CPT/HCPCS: 87624; 88142; 99386

== ENCOUNTER 2024-02-14 11:11 | Outpatient (AMB) | payer OTHER, SELFPAY ==
--- NOTE | 2024-02-14 11:18 | A.OFFPC_ITS ---
Vital Signs 02/14/24 11:20 Height 5 ft Weight 161 lb BMI 31.4 BP 125/80 Blood Pressure Location Lt brachial Position Sitting Pulse 66 Pulse Source Pulse Oximeter Pulse Oximetry (%) 99 Oxygen Delivery Method Room Air Intake Visit Reasons: 3 month follow up Intake Note: Pt is here today for her 3 months f/u Allergies No Known Allergies Allergy (Verified 02/14/24 11:37) Medication List - Last Reconciled 02/14/24 by Radha Domingo MD amlodipine 5 mg PO DAILY atenolol 100 mg PO DAILY cholecalciferol (vitamin D3) 1,250 mcg PO QWEEK 3 months escitalopram oxalate 20 mg PO DAILY levothyroxine 200 mcg PO QAM lisinopril-hydrochlorothiazide 20-12.5 mg 1 tab PO DAILY lorazepam 1 mg PO DAILY PRN Tobacco use date assessed: 02/14/24 Dental Screening Dental Screen Date: 02/14/24 Did you have a dental visit in the last 12 months?: No Was dental information given to patient?: Patient has dentist HPI 3 month follow up HPI Details 63-year-old lady with hypertension, hype rlipidemia, hypothyroidism, and mixed anxiety depressive disorder, here today for her follow-up. Has been taking her medications as directed, tries to follow recommended diet but has not been getting any exercise lately.. Blood pressure noted to be elevated on this visit. Denies any chest pain, no headache, no lightheadedness or shortness of breath It was also noted on last labs that her serum calcium level and random glucose levels were elevated. [facility] Medical History (Updated 02/14/24 @ 11:38 by Radha Domingo MD) Hypercalcemia Hyperlipidemia Vitamin D deficiency Essential hypertension Mixed anxiety and depressive disorder Acquired hypothyroidism Surgical History History of tubal ligation History of partial hysterectomy History of section Family History Father HTN (hypertension) Substance use disorder Mother Hypothyroidism Arthritis Depression Mental health disorder Brother No problems noted. Brother No problems noted. Brother No problems noted. Sister No problems noted. Daughter No problems noted. Daughter No problems noted. Social History Housing: House Patient Tobacco Use Status: Never used Tobacco e-Cigarette/Vaping Use: Never Used Substance Use Type: Marijuana service: No Current occupational status: unemployed Cognitive needs: No Hearing needs: No Vision needs: Yes Questionnaire Thrive Questionnaire Date Thrive assessed: 02/14/24 I am a: Patient What is your living situation today?: I have a steady place to live Within the past 12 months, did the food you bought not last and you didn't have the money to get more?: Sometimes True Within the past 12 months, did you worry whether your food would run out before you got money to buy more?: Sometimes True Do you have trouble paying for medicines?: No Do you have trouble getting transportation to medical appointments?: No Do you have trouble paying your heating and electricity bill?: Yes Do you have trouble taking care of your child, family member or friend?: No Do you have trouble with day-to-day activities such as bathing, preparing meals, shopping, managing finances, etc.?: No Are you currently unemployed and looking for a job?: No Are you interested in more education?: No THRIVE Score: 3 AUDIT C Alcohol Use Questionnaire (AUDIT-C) 1. How often do you have a drink containing alcohol?: Monthly or less 2. How many drinks containing alcohol do you have on a typical day when you are drinking?: 1 or 2 3. How often do you have six or more drinks on one occasion?: Never Total Score: 1 GRETA-7 AMB Questionnaire GRETA-7 Date GRETA - 7 assessed: 11/15/23 Source: Developed by Drs. Kenneth Min, Rachelle Chong, Harrison Baires and colleagues, with an educational juan from [employer]. Review of Systems Const All systems reviewed & are unremarkable except as noted in HPI and below Denies no additional complaints, Denies difficulty sleeping, Denies fatigue, Denies frequent falls and Denies headache(s) Eyes Reports blurry vision (overdue for her eye exam , used to see Dr bhakta) ENT Reports no additional complaints and Denies headache(s) Card Reports as per HPI, Reports no additional complaints and Denies palpitations Resp Reports as per HPI and Reports no additional complaints GI Reports as per HPI and Reports no additional complaints Reports as per HPI Musc Reports no additional complaints Skin/Breast Denies breast skin changes, Denies breast pain, Denies breast mass and Denies rash Neuro Denies frequent falls and Denies headache(s) Psych Reports as per HPI Endo Denies cold intolerance, Denies fatigue, Denies polydipsia, Denies polyuria and Denies palpitations Jose Roberto/Lymph Denies easy bleeding and Denies easy bruising Aller/Immun Reports no additional complaints Physical exam (Primary Care) Vital Signs: Last Vital Signs Pulse 66 02/14/24 11:20 BP 125/80 02/14/24 11:20 Pulse Ox 99 02/14/24 11:20 Oxygen Delivery Method Room Air 02/14/24 11:20 BMI result Body Mass Index 31.4 Tobacco/Smoking Status: Tobacco use Status Tobacco use date assessed 02/14/24 02/14/24 11:25 Patient Tobacco Use Status Never used Tobacco 02/14/24 11:20 e-Cigarette/Vaping Use Never Used 02/14/24 11:20 Thrive Assessment: Date of Thrive Assessment Date Thrive assessed 02/14/24 02/14/24 11:55 Const General: cooperative, comfortable, no acute distress and alert Nutritional Appearance: overweight Orientation/consciousness: patient oriented x3 HENMT Head: Yes normocephalic and Yes atraumatic Ears: hearing grossly normal bilaterally and external ears normal General nose exam: Normal external nose present and No nasal discharge present Face and sinus: Yes face symmetric Mouth: Normal oral and palatal mucosa present and moist mucous membranes Eyes General: appearance normal, both eyes and all related structures Pupils: Equal, round and reactive pupils present EOM: EOMs intact bilaterally Neck Neck: Yes full ROM, Yes no lymphadenopathy and Yes supple Thyroid: Thyroid normal Chest Chest palpation & inspection: normal inspection of the chest and normal palpation of entire chest wall Breast/axilla inspection: normal inspection of the breasts Breast/axilla palpation: normal palpation of the breasts Resp Effort & Inspection: normal respiratory effort and able to speak in complete sentences Auscultation: clear to auscultation bilaterally Cardio Rate: regular rate Rhythm: regular rhythm Heart sounds: S1 normal heart sound present and S2 normal heart sound present Bruits: no abdominal aortic bruits GI Inspection: Yes normal to inspection Palpation (GI): No Abdominal aortic bruit present, Soft to palpation, nontender, no guarding and no masses Auscultation: normal bowel sounds General: Yes no CVA tenderness Back/Spine/Pelvis Back: no CVA tenderness and No back tenderness Skin General skin exam: no rashes or lesions noted Neuro General: patient oriented x3, gait normal, moves all extremities, Normal light touch and pain sensation, no focal motor deficits and CN's II-XI intact bilaterally Cranial nerves: Yes Equal, round and reactive pupils present Cognition (Neuro): normal cognition Extrem General: Yes normal to inspection, Yes full ROM, Yes no joint enlargement, Yes no clubbing, cyanosis or edema, Yes no calf tenderness and Yes normal gait Assessment and Plan Assessment & Plan (1) Hyperlipidemia: Code(s): E78.5 - Hyperlipidemia, unspecified Qualifiers: Hyperlipidemia type: pure hypercholesterolemia Qualified Code(s): E78.00 - Pure hypercholesterolemia, unspecified Plan: Fasting lipid panel ordered today, stressed importance of following a low- cholesterol diet and getting regular exercise at least 15 minutes of cardio daily to start with. (2) Vitamin D deficiency: Code(s): E55.9 - Vitamin D deficiency, unspecified Plan: Will check vitamin-D level (3) Essential hypertension: Code(s): I10 - Essential (primary) hypertension Plan: Blood pressure at goal of less than 130/80. Continue lisinopril-HCTZ 20-12.5 mg taken once a day, amlodipine 5 mg daily and atenolol 100 mg once a day. Reinforced importance of following a low sodium diet, getting regular exercise, and lowering stress levels. (4) Mixed anxiety and depressive disorder: Code(s): F41.8 - Other specified anxiety disorders Plan: Currently on escitalopram 20 mg daily and takes lorazepam 1 mg as needed for acute anxiety attacks. Currently followed by Dr. Kyleigh Mascorro (5) Acquired hypothyroidism: Code(s): E03.9 - Hypothyroidism, unspecified Plan: Ordered the repeat TSH and free T4 levels, currently on levothyroxine 200 mcg daily in a.m. (6) Hypercalcemia: Code(s): E83.52 - Hypercalcemia Plan: Ordered serum ionized calcium and a repeat basic metabolic panel Orders: Orders Basic Metabolic Panel Fasting 02/14/24 E83.52 - Hypercalcemia, E78.00 - Pure hypercholesterolemia, unspecified, E55.9 - Vitamin D deficiency, unspecified, I10 - Essential (primary) hypertension, E03.9 - Hypothyroidism, unspecified Alanine Aminotransferase 02/14/24 E83.52 - Hypercalcemia, E78.00 - Pure hypercholesterolemia, unspecified, E55.9 - Vitamin D deficiency, unspecified, I10 - Essential (primary) hypertension, E03.9 - Hypothyroidism, unspecified Aspartate Amino Transferase 02/14/24 E83.52 - Hypercalcemia, E78.00 - Pure hypercholesterolemia, unspecified, E55.9 - Vitamin D deficiency, unspecified, I10 - Essential (primary) hypertension, E03.9 - Hypothyroidism, unspecified Vitamin D 25-OH Total 02/14/24 E83.52 - Hypercalcemia, E78.00 - Pure hypercholesterolemia, unspecified, E55.9 - Vitamin D deficiency, unspecified, I1 0 - Essential (primary) hypertension, E03.9 - Hypothyroidism, unspecified Lipid Panel 02/14/24 E83.52 - Hypercalcemia, E78.00 - Pure hypercholesterolemia, unspecified, E55.9 - Vitamin D deficiency, unspecified, I10 - Essential (primary) hypertension, E03.9 - Hypothyroidism, unspecified Thyroid Stimulating Hormone 02/14/24 E83.52 - Hypercalcemia, E78.00 - Pure hypercholesterolemia, unspecified, E55.9 - Vitamin D deficiency, unspecified, I10 - Essential (primary) hypertension, E03.9 - Hypothyroidism, unspecified Free T4 (Free Thyroxine) 02/14/24 E83.52 - Hypercalcemia, E78.00 - Pure hypercholesterolemia, unspecified, E55.9 - Vitamin D deficiency, unspecified, I10 - Essential (primary) hypertension, E03.9 - Hypothyroidism, unspecified Calcium, Ionized 02/14/24 E83.52 - Hypercalcemia, E78.00 - Pure hypercholesterolemia, unspecified, E55.9 - Vitamin D deficiency, unspecified, I10 - Essential (primary) hypertension, E03.9 - Hypothyroidism, unspecified Medications: Refilled atenolol 100 mg PO DAILY 90 caps 3RF amlodipine 5 mg PO DAILY 90 tabs 3RF lisinopril-hydrochlorothiazide 20-12.5 mg 1 tab PO DAILY 90 tabs 1RF Coding Level of Care Code Est Pt Level 4 (22842) Complex EM visit Add On G2211 Diagnoses Pure hypercholesterolemia E78.00 Hyperlipidemia type: pure hypercholesterolemia Vitamin D deficiency E55.9 Essential hypertension I10 Mixed anxiety and depressive disorder F41.8 Acquired hypothyroidism E03.9 Hypercalcemia E83.52
[2024-02-14 11:20] VITALS: BP 125/80; PULSE 66; O2SAT 99; BMI 31.4
== END 2024-02-14 12:59 | disposition home or self-care (01) ==
PROVIDERS: PCP Internal Medicine; Visit Provider Internal Medicine
DX: E78.00 Pure hypercholesterolemia, unspecified (principal); I10 Essential (primary) hypertension; F41.8 Other specified anxiety disorders; E03.9 Hypothyroidism, unspecified; E83.52 Hypercalcemia
CPT/HCPCS: 99214; G2211

== ENCOUNTER 2024-03-19 08:10 | Outpatient (REF) | payer OTHER, SELFPAY ==
[2024-03-19 09:21] LABS: Alanine Aminotransferase 12 U/L (0-31); Anion Gap 15 (12-20); Aspartate Amino Transferase 15 U/L (5-31); Blood Urea Nitrogen 25 mg/dL (9-16); Calcium 9.8 mg/dL (8.4-10.2); Carbon Dioxide 26 mmol/L (22-29); Chloride 106 mmol/L (96-108); Cholesterol 206 mg/dL (<200); Estimated Glomerular Filt Rate > 60; Glucose Fasting 100 mg/dL (60-99); HDL Cholesterol 37 mg/dL (>40); LDL Cholesterol Calculated 102 mg/dL (<100); Potassium 4.1 mmol/L (3.3-5.1); Sodium 143 mmol/L (135-145); Triglycerides 337 mg/dL (<150)
[2024-03-19 09:37] LABS: Free T4 (Free Thyroxine) 1.29 ng/dL (0.71-1.85); Thyroid Stimulating Hormone 0.02 uIU/mL (0.32-4.0); Vitamin D 25-OH Total 59.3 ng/mL (>30)
[2024-03-20 14:19] LABS: Calcium, Ionized 5.4 mg/dL (4.7-5.5)
== END 2024-03-19 08:11 | disposition home or self-care (01) ==
LOC: HO.LAB 08:10
PROVIDERS: PCP Internal Medicine; Visit Provider Internal Medicine
DX: E78.5 Hyperlipidemia, unspecified (principal); E55.9 Vitamin D deficiency, unspecified; E83.52 Hypercalcemia; E78.00 Pure hypercholesterolemia, unspecified; I10 Essential (primary) hypertension; E03.9 Hypothyroidism, unspecified
CPT/HCPCS: 36415; 80048; 80061; 82306; 82330; 84439; 84443; 84450; 84460

== ENCOUNTER 2025-05-17 10:19 | Outpatient (REF) | payer OTHER, SELFPAY ==
--- OUTSIDE RECORDS SUMMARY | 2025-05-17 10:57 | XMS_ITS | Patient Health Record ---
Author Organization [facility] Address [address] [place] [address] Care Team Providers Care Local Delivery Truck Driver Name Role Phone Tigre Guevara Jr Reason For Referral No Information Plan Of Treatment No Information
[2025-05-17 11:49] LABS: Alanine Aminotransferase 32 U/L (0-31); Anion Gap 15 (12-20); Aspartate Amino Transferase 35 U/L (5-31); Blood Urea Nitrogen 19 mg/dL (9-16); Calcium 9.8 mg/dL (8.4-10.2); Carbon Dioxide 27 mmol/L (22-29); Chloride 107 mmol/L (96-108); Cholesterol 234 mg/dL (<200); Estimated Glomerular Filt Rate > 60; HDL Cholesterol 50 mg/dL (>40); Potassium 4.0 mmol/L (3.3-5.1); Sodium 145 mmol/L (135-145); Triglycerides 263 mg/dL (<150)
[2025-05-17 11:54] LABS: Free T4 (Free Thyroxine) 1.26 ng/dL (0.71-1.85); Thyroid Stimulating Hormone 0.06 uIU/mL (0.32-4.0)
== END 2025-05-17 10:20 | disposition home or self-care (01) ==
LOC: HO.LAB 10:19
PROVIDERS: PCP Internal Medicine; Visit Provider Internal Medicine
DX: I10 Essential (primary) hypertension (principal); F41.8 Other specified anxiety disorders; E03.9 Hypothyroidism, unspecified; E78.00 Pure hypercholesterolemia, unspecified; E55.9 Vitamin D deficiency, unspecified
CPT/HCPCS: 36415; 80048; 80061; 82306; 84439; 84443; 84450; 84460

== ENCOUNTER → 2025-09-17 09:13 | Outpatient (BNVA) | payer OTHER, SELFPAY | PROVIDERS: PCP Internal Medicine | DX: I10 Essential (primary) hypertension (principal); Z01.30 Encounter for examination of blood pressure without abnormal findings | CPT/HCPCS: 99211 ==